=== PATIENT | male | born 1985 | race Caucasian/White ===

== ENCOUNTER 2016-09-19 14:26 | Emergency (ER) | payer OTHER ==
[~2016-09-19] VITALS: Wt 81.6 kg
[~2016-09-19 14:26] MED LIST: ALPRAZOLAM0.25 M2 PO; CYCLOBENZAPRINE10 MG PO; CYCLOBENZAPRINE5 M3 PO; FLEXERIL10 MG PO; HYDR12.5C PO; HYDROCODONE BIT1 T11 PO; MOTRIN600 MG PO; MOTRIN800 MG PO; Motrin,Rufen800 MG PO; NORFLEX100 MG PO; PERCOCET 325 MG1 TA2 PO; TRAMADOL HCL50 MG PO; TRAMADOL50 MG PO; VIIBRYD40 PO
[2016-09-19] MEDS ORDERED: ALPRAZOLAM0.25 M2 PO (14:40)
== END 2016-09-19 18:37 | disposition home or self-care (01) ==
LOC: ED 14:26
DX: S66.912A Strain of unspecified muscle, fascia and tendon at wrist and hand level, left hand, initial encounter (principal); Z88.0 Allergy status to penicillin; Z88.1 Allergy status to other antibiotic agents; Z88.6 Allergy status to analgesic agent; Z79.899 Other long term (current) drug therapy; W18.39XA Other fall on same level, initial encounter; Y93.89 Activity, other specified; Y92.096 Garden or yard of other non-institutional residence as the place of occurrence of the external cause; Y99.8 Other external cause status

== ENCOUNTER 2017-06-25 13:32 | Emergency (ER) | payer OTHER ==
[~2017-06-25] VITALS: Ht 190.5 cm; Wt 96.2 kg
[2017-06-25 15:08] LABS: BASO % 0.3 % (0.0-1.0); EOS # 0.1 10*3/uL (0.0-0.4); EOS % 1.8 % (1.0-4.0); HEMATOCRIT 46.6 % (42.0-52.0); LYMPH # 2.6 10*3/uL (1.3-4.4); MEAN CORPUSCULAR HGB 29.5 pg (27.0-31.0); MEAN CORPUSCULAR HGB CONC 34.3 g/dl (33.0-37.0); MEAN PLATELET VOLUME 12.5 fl (9.6-12.3); MONO # 0.4 10*3/uL (0.1-1.0); MONO % 6.9 % (3.0-9.0); NEUT % 48.8 % (47.0-73.0); PLATELET COUNT AUTOMATED 188 10*3/uL (130-400); RED BLOOD COUNT 5.42 10*6/uL (4.50-5.90); RED CELL DISTRI WIDTH 12.8 % (0-14.5); WHITE BLOOD COUNT 6.1 10*3/uL (4.8-10.8)
[2017-06-25 15:26] LABS: ALBUMIN 3.9 gm/dl (3.1-4.5); ALKALINE PHOSPHATASE 80 U/L (45-117); BUN 9 mg/dl (7-24); CHLORIDE 103 mmol/L (98-107); CREATININE 0.91 mg/dL (0.70-1.30); LIPASE 72 U/L (73-393); POTASSIUM 3.6 mmol/L (3.5-5.1); SGOT/AST 22 IU/L (3-35); SGPT/ALT 30 U/L (12-78); SODIUM 138 mmol/L (136-145); TOTAL PROTEIN 7.5 gm/dL (6.4-8.2)
[2017-06-25 15:30] LABS: TROPONIN I < 0.015 ng/ml (<0.045)
[2017-06-25 16:10] LABS: BILIRUBIN NEGATIVE (NEGATIVE); BLOOD 3+ (NEGATIVE); CLARITY CLEAR (CLEAR); COLOR YELLOW (YELLOW); GLUCOSE NEGATIVE (NEGATIVE); KETONE NEGATIVE (NEGATIVE); LEUKO ESTERASE NEGATIVE (NEGATIVE); NITRITE NEGATIVE (NEGATIVE); SPECIFIC GRAVITY <= 1.005 (1.005-1.030); UROBILINOGEN 0.2 E.U./dl (0.2-1.0)
[2017-06-25 16:36] LABS: BACTERIA TRACE; RBC 0-2 rbc/hpf (0-2); WBC 0-2 wbc/hpf (0-5)
[2017-06-25] MEDS ORDERED: Motrin,Rufen800 MG PO (16:58)
[2017-06-25] MEDS ORDERED: NORCO 5-325 TA1 EACH PO (16:58)
== END 2017-06-25 17:20 | disposition home or self-care (01) ==
LOC: ED 13:32
PROVIDERS: Nurse Practitioner Family
DX: R31.9 Hematuria, unspecified (principal); R10.30 Lower abdominal pain, unspecified; L81.9 Disorder of pigmentation, unspecified; Z88.0 Allergy status to penicillin; Z88.1 Allergy status to other antibiotic agents; Z88.6 Allergy status to analgesic agent

== ENCOUNTER 2017-08-20 18:31 | Emergency (ER) | payer OTHER ==
[~2017-08-20] VITALS: Ht 187.9 cm; Wt 87.5 kg
[~2017-08-20 18:31] MED LIST changes: +NORCO 5-325 TA1 EACH PO
[2017-08-20] MEDS ORDERED: MEDROL DOSEPAK4 MG PO (19:57)
[2017-08-20] MEDS ORDERED: CYCLOBENZAPRINE10 MG PO (19:57)
[2017-08-20] MEDS ORDERED: NAPROSYN500 MG PO (19:57)
== END 2017-08-20 20:31 | disposition home or self-care (01) ==
LOC: ED 18:31
DX: S39.012A Strain of muscle, fascia and tendon of lower back, initial encounter (principal); Z88.0 Allergy status to penicillin; Z88.1 Allergy status to other antibiotic agents; Z88.5 Allergy status to narcotic agent; X50.9XXA Other and unspecified overexertion or strenuous movements or postures, initial encounter; Y93.89 Activity, other specified; Y92.89 Other specified places as the place of occurrence of the external cause; Y99.8 Other external cause status

== ENCOUNTER 2017-12-07 01:46 | Emergency (ER) | payer OTHER ==
[~2017-12-07] VITALS: Ht 190.5 cm; Wt 94.3 kg
[~2017-12-07 01:46] MED LIST changes: +MEDROL DOSEPAK4 MG PO; +NAPROSYN500 MG PO
[2017-12-28] MEDS ORDERED: NORCO 5-325 TA1 EACH PO (02:35)
== END 2017-12-07 03:15 | disposition home or self-care (01) ==
LOC: ED 01:46
DX: S20.212A Contusion of left front wall of thorax, initial encounter (principal); Z88.0 Allergy status to penicillin; Z88.1 Allergy status to other antibiotic agents; Z88.5 Allergy status to narcotic agent; W18.31XA Fall on same level due to stepping on an object, initial encounter; Y93.89 Activity, other specified; Y92.89 Other specified places as the place of occurrence of the external cause; Y99.8 Other external cause status

== ENCOUNTER 2017-12-09 14:34 | Emergency (ER) | payer OTHER ==
[~2017-12-09] VITALS: Ht 187.9 cm; Wt 97.5 kg
[2017-12-28] MEDS ORDERED: NORCO 5-325 TA1 EACH PO (02:35)
== END 2017-12-09 16:12 | disposition home or self-care (01) ==
LOC: ED 14:34
DX: S20.212A Contusion of left front wall of thorax, initial encounter (principal); R03.0 Elevated blood-pressure reading, without diagnosis of hypertension; Z88.6 Allergy status to analgesic agent; Z88.0 Allergy status to penicillin; Z88.1 Allergy status to other antibiotic agents; W18.2XXA Fall in (into) shower or empty bathtub, initial encounter; Y93.89 Activity, other specified; Y92.89 Other specified places as the place of occurrence of the external cause; Y99.8 Other external cause status

== ENCOUNTER 2017-12-30 10:34 | Emergency (ER) | payer OTHER ==
[~2017-12-30] VITALS: Ht 187.9 cm; Wt 90.7 kg
== END 2017-12-30 12:02 | disposition home or self-care (01) ==
LOC: ED 10:34
DX: S63.92XA Sprain of unspecified part of left wrist and hand, initial encounter (principal); Z88.6 Allergy status to analgesic agent; Z88.0 Allergy status to penicillin; Z88.1 Allergy status to other antibiotic agents; X58.XXXA Exposure to other specified factors, initial encounter; Y93.89 Activity, other specified; Y92.89 Other specified places as the place of occurrence of the external cause; Y99.8 Other external cause status

== ENCOUNTER 2018-04-03 18:03 | Emergency (ER) | payer OTHER ==
[2018-04-03 19:47] LABS: URINE AMPHETAMINES < 1000 (1000ng/ml); URINE BARBITURATES < 200 (200ng/ml); URINE BENZODIAZEPINES > 200 (200ng/ml); URINE CANNABINOIDS (THC) < 50 (50ng/ml); URINE COCAINE < 300 (300ng/ml); URINE METHADONE < 300 (300ng/ml); URINE OPIATES < 300 (300ng/ml); URINE PHENCYCLIDINE < 25 (25ng/ml)
[2018-04-03] MEDS ORDERED: CYCLOBENZAPRINE5 M3 PO (21:05)
[2018-04-03] MEDS ORDERED: Motrin,Rufen800 MG PO (21:05)
== END 2018-04-03 21:24 | disposition home or self-care (01) ==
LOC: ED 18:03
PROVIDERS: Physician Assistant
DX: S39.012A Strain of muscle, fascia and tendon of lower back, initial encounter (principal); S16.1XXA Strain of muscle, fascia and tendon at neck level, initial encounter; Z88.0 Allergy status to penicillin; Z88.1 Allergy status to other antibiotic agents; Z88.6 Allergy status to analgesic agent; S09.90XA Unspecified injury of head, initial encounter; V47.5XXA Car driver injured in collision with fixed or stationary object in traffic accident, initial encounter; Y93.89 Activity, other specified; Y92.89 Other specified places as the place of occurrence of the external cause; Y99.8 Other external cause status

== ENCOUNTER 2018-04-26 19:27 | Emergency (ER) | payer SELFPAY ==
[~2018-04-26] VITALS: Ht 187.9 cm; Wt 97.5 kg
[2018-04-26 20:07] LABS: BILIRUBIN NEGATIVE (NEGATIVE); BLOOD NEGATIVE (NEGATIVE); CLARITY SL CLOUDY (CLEAR); COLOR YELLOW (YELLOW); GLUCOSE NEGATIVE (NEGATIVE); KETONE NEGATIVE (NEGATIVE); LEUKO ESTERASE NEGATIVE (NEGATIVE); NITRITE NEGATIVE (NEGATIVE); SPECIFIC GRAVITY >= 1.030 (1.005-1.030)
[2018-04-26 20:17] LABS: BACTERIA 1+; EPITHELIAL CELLS 0-2; MUCOUS TRACE; RBC 0-2 rbc/hpf (0-2); WBC 0-2 wbc/hpf (0-5)
[2018-04-26] MEDS ORDERED: LEVOFLOXACIN500 MG PO (21:01)
[2018-04-26] MEDS ORDERED: NORCO 5-325 TA1 EACH PO (21:02)
[2018-04-30 08:10] LABS: GONOCOCCUS BY NAA Negative (Negative)
== END 2018-04-26 21:05 | disposition home or self-care (01) ==
LOC: ED 19:27
PROVIDERS: Nurse Practitioner Family
DX: N45.1 Epididymitis (principal); Z88.0 Allergy status to penicillin; Z88.1 Allergy status to other antibiotic agents; Z88.6 Allergy status to analgesic agent

== ENCOUNTER 2018-06-18 05:46 | Emergency (ER) | payer SELFPAY ==
[~2018-06-18] VITALS: Ht 187.9 cm; Wt 96.2 kg
[~2018-06-18 05:46] MED LIST changes: +LEVOFLOXACIN500 MG PO
[2018-06-18] MEDS ORDERED: Motrin,Rufen800 MG PO (06:38)
[2018-06-18] MEDS ORDERED: NORCO 5-325 TA1 EACH PO (06:38)
[2018-06-18] MEDS ORDERED: CYCLOBENZAPRINE5 M3 PO (06:38)
== END 2018-06-18 06:44 | disposition home or self-care (01) ==
LOC: ED 05:46
DX: M75.102 Unspecified rotator cuff tear or rupture of left shoulder, not specified as traumatic (principal); Z88.6 Allergy status to analgesic agent; Z88.0 Allergy status to penicillin; Z88.1 Allergy status to other antibiotic agents; X50.0XXA Overexertion from strenuous movement or load, initial encounter; Y93.89 Activity, other specified; Y92.89 Other specified places as the place of occurrence of the external cause; Y99.0 Civilian activity done for income or pay

== ENCOUNTER 2018-07-24 05:47 | Emergency (ER) | payer BC ==
[~2018-07-24] VITALS: Ht 190.5 cm; Wt 95.3 kg
== END 2018-07-24 06:32 | disposition home or self-care (01) ==
LOC: ED 05:47
DX: M25.512 Pain in left shoulder (principal); R20.0 Anesthesia of skin; Z88.6 Allergy status to analgesic agent; Z88.0 Allergy status to penicillin; Z88.1 Allergy status to other antibiotic agents; Z79.2 Long term (current) use of antibiotics; Z79.899 Other long term (current) drug therapy; X50.0XXA Overexertion from strenuous movement or load, initial encounter; Y93.89 Activity, other specified; Y92.69 Other specified industrial and construction area as the place of occurrence of the external cause; Y99.0 Civilian activity done for income or pay

== ENCOUNTER 2018-11-20 03:29 | Emergency (ER) | payer BC ==
[~2018-11-20] VITALS: Ht 190.5 cm; Wt 95.3 kg
[2018-11-20] MEDS ORDERED: XANAX0.25 MG PO (03:34)
[2018-11-20] MEDS ORDERED: VICODIN 5-3001 EACH PO (06:01)
[2018-11-20] MEDS ORDERED: CYCLOBENZAPRINE10 MG PO (06:01)
[2018-11-20] MEDS ORDERED: MEDROL DOSEPAK4 MG PO (06:01)
[2018-11-20] MEDS ORDERED: NORCO 5-325 TA1 EACH PO (19:05)
== END 2018-11-20 06:19 | disposition home or self-care (01) ==
LOC: ED 03:29
DX: S39.012A Strain of muscle, fascia and tendon of lower back, initial encounter (principal); M51.26 Other intervertebral disc displacement, lumbar region; Z87.891 Personal history of nicotine dependence; Z88.6 Allergy status to analgesic agent; Z88.0 Allergy status to penicillin; Z88.1 Allergy status to other antibiotic agents; Z79.899 Other long term (current) drug therapy; X50.1XXA Overexertion from prolonged static or awkward postures, initial encounter; Y93.H2 Activity, gardening and landscaping; Y92.79 Other farm location as the place of occurrence of the external cause; Y99.8 Other external cause status

== ENCOUNTER 2018-12-29 21:02 | Emergency (ER) | payer BC ==
[~2018-12-29] VITALS: Ht 187.9 cm; Wt 97.5 kg
[~2018-12-29 21:02] MED LIST changes: +VICODIN 5-3001 EACH PO; +XANAX0.25 MG PO
[2018-12-29] MEDS ORDERED: MEDROL DOSEPAK4 MG PO (23:19)
[2018-12-29] MEDS ORDERED: CYCLOBENZAPRINE5 M3 PO (23:19)
== END 2018-12-29 23:30 | disposition home or self-care (01) ==
LOC: ED 21:02
DX: M54.5 Low back pain (principal); R20.0 Anesthesia of skin; I10 Essential (primary) hypertension; Z88.6 Allergy status to analgesic agent; Z88.0 Allergy status to penicillin; Z88.1 Allergy status to other antibiotic agents; Z79.899 Other long term (current) drug therapy

== ENCOUNTER 2019-01-05 05:28 | Emergency (ER) | payer BC ==
[~2019-01-05] VITALS: Ht 187.9 cm; Wt 97.5 kg
[2019-01-05] MEDS ORDERED: IBU800 MG PO (05:51)
[2019-01-05] MEDS ORDERED: CYCLOBENZAPRINE10 MG PO (05:51)
== END 2019-01-05 06:00 | disposition home or self-care (01) ==
LOC: ED 05:28
DX: M54.5 Low back pain (principal); G89.29 Other chronic pain; I10 Essential (primary) hypertension; Z88.6 Allergy status to analgesic agent; Z88.0 Allergy status to penicillin; Z88.1 Allergy status to other antibiotic agents; Z88.8 Allergy status to other drugs, medicaments and biological substances; Z79.899 Other long term (current) drug therapy

== ENCOUNTER 2020-12-13 03:53 | Emergency (ER) | payer SELFPAY ==
[~2020-12-13] VITALS: Ht 185.4 cm; Wt 86.2 kg
[~2020-12-13 03:53] MED LIST changes: +IBU800 MG PO
[2020-12-13 06:15] LABS: BASO % 0.2 % (0.0-1.0); HEMATOCRIT 45.8 % (42.0-52.0); LYMPH # 2.2 10*3/uL (1.3-4.4); LYMPH % 20.7 % (27.0-41.0); MEAN CORPUSCULAR HGB 29.5 pg (27.0-31.0); MEAN CORPUSCULAR HGB CONC 32.1 g/dl (33.0-37.0); MEAN PLATELET VOLUME 12.8 fl (9.6-12.3); MONO # 0.5 10*3/uL (0.1-1.0); NEUT # 7.8 10*3/uL (2.3-7.9); NEUT % 73.8 % (47.0-73.0); PLATELET COUNT AUTOMATED 172 10*3/uL (130-400); RED BLOOD COUNT 4.98 10*6/uL (4.50-5.90); RED CELL DISTRI WIDTH 13.5 % (0-14.5); WHITE BLOOD COUNT 10.5 10*3/uL (4.8-10.8)
[2020-12-13 06:32] LABS: ALBUMIN 3.5 gm/dl (3.1-4.5); ALKALINE PHOSPHATASE 84 U/L (45-117); BUN 14 mg/dl (7-24); CHLORIDE 108 mmol/L (98-107); CREATININE 0.89 mg/dL (0.70-1.30); LIPASE 66 U/L (73-393); POTASSIUM 4.3 mmol/L (3.5-5.1); SGOT/AST 21 IU/L (3-35); SGPT/ALT 30 U/L (12-78); SODIUM 138 mmol/L (136-145)
== END 2020-12-13 08:09 | disposition home or self-care (01) ==
LOC: ED 03:53
PROVIDERS: Emergency Medicine
DX: R11.10 Vomiting, unspecified (principal); Z88.0 Allergy status to penicillin; Z88.1 Allergy status to other antibiotic agents; Z88.6 Allergy status to analgesic agent

== ENCOUNTER 2021-02-21 04:25 | Emergency (ER) | payer SELFPAY ==
[~2021-02-21] VITALS: Ht 185.4 cm; Wt 86.2 kg
[2021-02-21 05:08] LABS: ALBUMIN 3.4 gm/dl (3.1-4.5); BUN 16 mg/dl (7-24); CHLORIDE 107 mmol/L (98-107); CREATININE 0.95 mg/dL (0.70-1.30); POTASSIUM 3.8 mmol/L (3.5-5.1); SGOT/AST 22 IU/L (3-35); SGPT/ALT 21 U/L (12-78); SODIUM 138 mmol/L (136-145)
[2021-02-21 05:10] LABS: ALKALINE PHOSPHATASE 94 U/L (45-117); TOTAL PROTEIN 6.9 gm/dL (6.4-8.2)
[2021-02-21 05:55] LABS: BASO % 0.2 % (0.0-1.0); HEMATOCRIT 46.4 % (42.0-52.0); LYMPH # 1.6 10*3/uL (1.3-4.4); LYMPH % 19.1 % (27.0-41.0); MEAN CELL VOLUME 90.3 fl (80.0-94.0); MEAN CORPUSCULAR HGB 29.8 pg (27.0-31.0); MONO # 0.7 10*3/uL (0.1-1.0); MONO % 8.8 % (3.0-9.0); NEUT % 70.8 % (47.0-73.0); PLATELET COUNT AUTOMATED 171 10*3/uL (130-400); RED BLOOD COUNT 5.14 10*6/uL (4.50-5.90); RED CELL DISTRI WIDTH 13.5 % (0-14.5); WHITE BLOOD COUNT 8.5 10*3/uL (4.8-10.8)
[2021-02-21 06:40] LABS: BILIRUBIN Negative (Negative); BLOOD Negative (Negative); CLARITY Clear (Clear); COLOR Yellow (Yellow); GLUCOSE Negative (Negative); KETONE Trace (Negative); LEUKO ESTERASE Negative (Negative); NITRITE Negative (Negative); SPECIFIC GRAVITY >= 1.030 (1.001-1.030)
[2021-02-21 06:48] LABS: RBC 0-2 rbc/hpf (0-2)
[2021-02-21 06:49] LABS: URINE AMPHETAMINES < 1000 (1000ng/ml); URINE BARBITURATES < 200 (200ng/ml); URINE BENZODIAZEPINES < 200 (200ng/ml); URINE CANNABINOIDS (THC) > 50 (50ng/ml); URINE COCAINE < 300 (300ng/ml); URINE METHADONE < 300 (300ng/ml); URINE OPIATES < 300 (300ng/ml)
[2021-02-21 06:50] LABS: URINE PHENCYCLIDINE < 25 (25ng/ml)
== END 2021-02-21 10:10 | disposition home or self-care (01) ==
LOC: ED 04:25
PROVIDERS: Internal Medicine
DX: R51.9 Headache, unspecified (principal)